=== PATIENT | female | born 1960 | race Caucasian/White ===

== ENCOUNTER 2016-09-25 09:53 | Emergency (ER) | payer OTHER ==
[~2016-09-25] VITALS: Ht 160 cm; Wt 62.0 kg
[2016-09-25 09:56] VITALS: Ht 160 cm; Wt 62.0 kg
[2016-09-25] MEDS ORDERED: IBUPROFEN 600 MG TAB PO ONE (10:30)
--- NOTE | 2016-09-25 10:50 | RADRPT ---
PROCEDURE: XR left Shoulder. CLINICAL INDICATION: Shoulder pain TECHNIQUE: 3 views of the left shoulder are available for review. COMPARISON: None available FINDINGS: There is no acute fracture or dislocation. The glenohumeral and acromioclavicular joints are intact . There is mild joint space narrowing with osseous spurring of the acromioclavicular joint. The sof t tissues around the left shoulder are unremarkable. There is no acute fracture of the visualized left ribs. RPTAT: ZZ IMPRESSION: 1. No acute bony abnormality. 2. Mild osteoarthrosis of the acromioclavicular joint. .Lia Christopher MD, MD Date Time Electronically viewed and signed by .Lia Christopher MD, on 09/25/2016 10:49 .T/
--- NOTE | 2016-09-25 10:51 | RADRPT ---
PROCEDURE: XR Chest. CLINICAL INDICATION: Left shoulder pain TECHNIQUE: Single frontal chest x-ray. COMPARISON: None. FINDINGS: The lungs are adequately expanded and clear. There is no focal consolidation, pleural effusion, or pneumothorax. The heart and mediastinal contours are unremarkable. There are no acute fractures. P sherry see shoulder radiographs of the same day for additional details of the left shoulder. RPTAT: ZZ IMPRESSION: No acute cardiopulmonary abnormality. .Lia Christopher MD, MD Date Time Electronically viewed and signed by .Lia Christopher MD, MD on 09/25/2016 10:51 .T/
[2016-09-25] MEDS ORDERED: IBUP-1542 PO (10:58)
[2016-09-25] MEDS ORDERED: ORPH100T PO (10:58)
--- NOTE | 2016-09-25 15:58 | ERD ---
ER Documentation Chief Complaint Date/Time DATE: 09/25/16 TIME: 15:52 Chief Complaint left shoulder pain x3 days, unk cause HPI This is a 55-year-old female presents to the ER with left shoulder pain for the last 3 days. Left shoulder pain extends into patient's back and is worse whenever she tries to move. Patient states she was cooking when she started feeling the pain. Pain is severe and intermittent. Patient tried over-the- counter pain pills however did not work. She denies any trauma to the area she denies any fevers or chills. Patient does not work and only does chores around the house. Patient denies any numbness or tingling of her extremity. She denies any elbow pain or wrist pain. ROS 12 point review of systems was done, all negative except per HPI. Medications Home Meds Active Scripts Orphenadrine Citrate (Norflex) 100 Mg Tablet.sa, 100 MG PO BID for 7 Days, TAB.SA Prov:CHEKO VIZCARRA C 09/25/16 Ibuprofen* (Motrin*) 600 Mg Tab, 600 MG PO Q6, #30 TAB Prov:ZACKERY,CHEKO C 09/25/16 Allergies Allergies: Coded Allergies: No Known Allergy (Unverified , 09/25/16) PMhx/Soc History of Surgery: Yes (Hysterectomy) Anesthesia Reaction: No Hx Neurological Disorder: No Hx Respiratory Disorders: No Hx Cardiac Disorders: No Hx Psychiatric Problems: No Hx Miscellaneous Medical Probl: Yes (Hypothyroidism) Hx Alcohol Use: No Hx Substance Use: No Hx Tobacco Use: No Smoking Status: Never smoker Physical Exam Vitals Vital Signs Date Time Temp Pulse Resp B/P Pulse Ox O2 Delivery O2 Flow Rate FiO2 09/25/16 09:56 98.3 65 18 135/78 98 Physical Exam GENERAL: The patient is well developed and appropriate for usual state of health , in no apparent distress. HEENT: Atraumatic. Neck: No cervical spine tenderness. Tender to palpation along trapezius muscles. No crepitus no step-offs CHEST: Clear to auscultation bilaterally. There are no rales, wheezes or rhonchi. HEART: Regular rate and rhythm. No murmurs, clicks, rubs or gallops. EXTREMITIES: The left shoulder is without obvious deformity when compared to the right shoulder. There is no surface trauma or ecchymosis or crepitus. No bony deformity or prominence of the humeral head. No erythema, warmth, swelling. Not tender to palpation over the clavicle, scapula or humeral head. Patient is tender to palpation to the AC joint and acromion. Not tender to palpation of the bicipital groove or soft tissues. Tender to palpation to the sternocleidomastoid, deltoid and trapezius. Patient is also tender to palpation to the latissimus dorsi. No rotator cuff tenderness. Patient does have some pain with shoulder extension and internal rotation normal abduction and abduction. NEURO: Alert and oriented. Cranial nerves II through XII are intact. Motor strength in all 4 extremities with 5/5 strength. Sensation grossly intact. Normal speech and gait. SKIN: There is no apparent rash or petechia. The skin is warm and dry. Results 24 hrs Current Medications Medications (Trade) Dose Ordered Sig/Aristeo Route PRN Reason Start Time Stop Time Status Last Admin Dose Admin Ibuprofen (Motrin) 600 mg ONCE ONCE PO 09/25/16 10:30 09/25/16 10:31 DC 09/25/16 10:23 Procedures/MDM Differential diagnosis includes but is not limited to; shoulder fracture shoulder sprain shoulder dislocation, AC separation, rotator cuff tear, bursitis , tendinitis, C-spine injury, peripheral nerve injury, occult intra-abdominal bleeding, AAA. This is a 55-year-old female presents to the ER with left shoulder pain that started 3 days ago. At this time etiology of the shoulder pain is unknown however patient did have some osteoarthritis of the AC joint. Patient is neurovascularly intact, afebrile and is able to move her shoulder. Patient denied any chest pain, however EKG was taken and read by my supervising physician 57bpm no st elevation or t wave inversion. Patient will be sent home with ibuprofen. She is to follow-up with her primary care doctor within 1-2 days return to ER sooner if symptoms worsen. My medical decision making shared with the patient she understands and agrees with plan. Departure Diagnosis: Primary Impression: Shoulder pain Condition: Stable Patient Instructions: Shoulder Pain (Uncertain Cause) Additional Instructions: Llame al doctor MAANA y renetta ting ABHINAV PARA DENTRO DE 1-2 MYERS.Dgale a la secretaria que nosotros le instruimos hacer esta abhinav.Avise o llame si swanson condicin se empeora antes de la abhinav. Regresa aqui si peor o no mejor. CHEKO VIZCARRA Sep 25, 2016 15:58
== END 2016-09-25 11:05 | disposition home or self-care (01) ==
LOC: FTE 09:53
DX: M25.512 Pain in left shoulder (principal); E03.9 Hypothyroidism, unspecified; R07.9 Chest pain, unspecified
CPT/HCPCS: 71010; 73030; 93005; Z7502; Z7610

== ENCOUNTER 2017-01-18 17:38 | Emergency (ER) | payer OTHER ==
[~2017-01-18] VITALS: Wt 62.0 kg
[~2017-01-18 17:38] MED LIST: IBUP-1542 PO; ORPH100T PO
[2017-01-18] MEDS ORDERED: BEN50 PO (19:42)
[2017-01-18] MEDS ORDERED: PRED20TA PO (19:42)
--- NOTE | 2017-01-18 19:53 | ERD ---
ER Documentation Chief Complaint Chief Complaint rash, itchiness, swollen lips (airway intact) HPI 56-year-old female presents to ED with pruritic skin lesions 3 days. Patient stated that the lesion comes and goes throughout the last 3 days. Today, she her lip got swollen. Denies shortness of breath. Denies wheezing. Denies exposure to new foods or new cleaning products. Denies fever or chills. ROS All systems reviewed and are negative except as per history of present illness. Medications Home Meds Active Scripts Prednisone* (Prednisone*) 20 Mg Tab, 60 MG PO DAILY for 3 Days, TAB Prov:LISS BONILLA. BELT MAKER 01/18/17 Diphenhydramine Hcl* (Benadryl*) 50 Mg Cap, 50 MG PO Q6H Y for ITCHING/RASH, # 30 CAP Prov:LISS BONILLA. BELT MAKER 01/18/17 Orphenadrine Citrate (Norflex) 100 Mg Tablet.sa, 100 MG PO BID for 7 Days, TAB.SA Prov:ZACKERY,CHEKO C 09/25/16 Ibuprofen* (Motrin*) 600 Mg Tab, 600 MG PO Q6, #30 TAB Prov:ZACKERY,CHEKO C 09/25/16 Allergies Allergies: Coded Allergies: No Known Allergy (Unverified , 01/18/17) PMhx/Soc History of Surgery: Yes (Hysterectomy) Anesthesia Reaction: No Hx Neurological Disorder: No Hx Respiratory Disorders: No Hx Cardiac Disorders: No Hx Psychiatric Problems: No Hx Miscellaneous Medical Probl: Yes (Hypothyroidism) Hx Alcohol Use: No Hx Substance Use: No Hx Tobacco Use: No Smoking Status: Never smoker Physical Exam Vitals Vital Signs Date Time Temp Pulse Resp B/P Pulse Ox O2 Delivery O2 Flow Rate FiO2 01/18/17 17:51 98.8 77 20 156/68 99 Physical Exam General: Well-developed, well-nourished, conscious and coherent, in no distress Skin: Warm and dry, good texture and turgor. I spread, multiple clusters of urticarial lesions noted on patient's torso and extremities. Head: Normocephalic without evidence of trauma Eyes: Sclera and conjunctivae normal; pupils equal, round, and reactive to light; extraocular movements are intact Mouth/throat: Mucous membranes are moist. Posterior pharynx clear without erythema or exudates Chest: Normal AP diameter. Good expansion without retractions. Nontender. Lungs are clear to auscultate bilaterally with good tidal volume Heart: Regular rate and rhythm. No murmur, rub, or gallops heard Extremities: Full range of motion. Good strength bilaterally. No clubbing, cyanosis, or edema. Peripheral pulses are intact. Sensation intact Neuro: Alert and oriented 4, GCS 15. Cranial nerves grossly intact. Motor and sensory exams nonfocal. Moves all extremities. Speech clear. Gait normal Results 24 hrs Current Medications Medications (Trade) Dose Ordered Sig/Aristeo Route PRN Reason Start Time Stop Time Status Last Admin Dose Admin Diphenhydramine HCl (Benadryl) 50 mg ONCE ONCE PO 01/18/17 20:00 01/18/17 20:01 Prednisone (Prednisone) 60 mg ONCE ONCE PO 01/18/17 20:00 01/18/17 20:01 Procedures/MDM Well-appearing 56-year-old female presented ED with urticaria 3 days. Suspect urticaria is allergic in nature, however patient does not know what causes that allergy. There is no sign of anaphylaxis. Patient is given Benadryl and prednisone in the ED. Patient's care and improved after the medication. Patient advised to keep a exposure diary at home in order to identify a cause allergy. Patient also advised to follow-up with PCP or bus and sys integration senior manager for allergy testing. Patient appears well, stable for discharge and outpatient management. Medical decision making shared with patient and family. Education provided to patient and family. Patient and family expressed understanding of the plan. Medications on discharge: Benadryl, prednisone. Follow-up: Primary care provider in 2-3 days or return to ED if worse. Disclaimer: Inadvertent spelling and grammatical errors are likely due to EHR/ dictation software use and do not reflect on the overall quality of patient care. Also, please note that the electronic time recorded on this note does not necessarily reflect the actual time of the patient encounter. Departure Diagnosis: Primary Impression: Urticaria Condition: Stable Patient Instructions: Hives Additional Instructions: Llame al doctor OSCARANA y renetta ting ABHINAV PARA DENTRO DE 2-3 MYERS.Dgale a la secretaria que nosotros le instruimos hacer esta abhinav.Avise o llame si swanson condicin se empeora antes de la abhinav. Regresa aqui si peor o no mejor. LISS BONILLA NP Jan 18, 2017 19:53
--- NOTE | 2017-01-18 19:53 | ERD ---
ER Documentation Chief Complaint Chief Complaint rash, itchiness, swollen lips (airway intact) HPI 56-year-old female presents to ED with pruritic skin lesions 3 days. Patient stated that the lesion comes and goes throughout the last 3 days. Today, she her lip got swollen. Denies shortness of breath. Denies wheezing. Denies exposure to new foods or new cleaning products. Denies fever or chills. ROS All systems reviewed and are negative except as per history of present illness. Medications Home Meds Active Scripts Prednisone* (Prednisone*) 20 Mg Tab, 60 MG PO DAILY for 3 Days, TAB Prov:LISS BONILLA. FURRIER APPRENTICE 01/18/17 Diphenhydramine Hcl* (Benadryl*) 50 Mg Cap, 50 MG PO Q6H Y for ITCHING/RASH, # 30 CAP Prov:LISS OBNILLA. FURRIER APPRENTICE 01/18/17 Orphenadrine Citrate (Norflex) 100 Mg Tablet.sa, 100 MG PO BID for 7 Days, TAB.SA Prov:ZACKERY,CHEKO C 09/25/16 Ibuprofen* (Motrin*) 600 Mg Tab, 600 MG PO Q6, #30 TAB Prov:ZACKERY,CHEKO C 09/25/16 Allergies Allergies: Coded Allergies: No Known Allergy (Unverified , 01/18/17) PMhx/Soc History of Surgery: Yes (Hysterectomy) Anesthesia Reaction: No Hx Neurological Disorder: No Hx Respiratory Disorders: No Hx Cardiac Disorders: No Hx Psychiatric Problems: No Hx Miscellaneous Medical Probl: Yes (Hypothyroidism) Hx Alcohol Use: No Hx Substance Use: No Hx Tobacco Use: No Smoking Status: Never smoker Physical Exam Vitals Vital Signs Date Time Temp Pulse Resp B/P Pulse Ox O2 Delivery O2 Flow Rate FiO2 01/18/17 17:51 98.8 77 20 156/68 99 Physical Exam General: Well-developed, well-nourished, conscious and coherent, in no distress Skin: Warm and dry, good texture and turgor. I spread, multiple clusters of urticarial lesions noted on patient's torso and extremities. Head: Normocephalic without evidence of trauma Eyes: Sclera and conjunctivae normal; pupils equal, round, and reactive to light; extraocular movements are intact Mouth/throat: Mucous membranes are moist. Posterior pharynx clear without erythema or exudates Chest: Normal AP diameter. Good expansion without retractions. Nontender. Lungs are clear to auscultate bilaterally with good tidal volume Heart: Regular rate and rhythm. No murmur, rub, or gallops heard Extremities: Full range of motion. Good strength bilaterally. No clubbing, cyanosis, or edema. Peripheral pulses are intact. Sensation intact Neuro: Alert and oriented 4, GCS 15. Cranial nerves grossly intact. Motor and sensory exams nonfocal. Moves all extremities. Speech clear. Gait normal Results 24 hrs Current Medications Medications (Trade) Dose Ordered Sig/Aristeo Route PRN Reason Start Time Stop Time Status Last Admin Dose Admin Diphenhydramine HCl (Benadryl) 50 mg ONCE ONCE PO 01/18/17 20:00 01/18/17 20:01 Prednisone (Prednisone) 60 mg ONCE ONCE PO 01/18/17 20:00 01/18/17 20:01 Procedures/MDM Well-appearing 56-year-old female presented ED with urticaria 3 days. Suspect urticaria is allergic in nature, however patient does not know what causes that allergy. There is no sign of anaphylaxis. Patient is given Benadryl and prednisone in the ED. Patient's care and improved after the medication. Patient advised to keep a exposure diary at home in order to identify a cause allergy. Patient also advised to follow-up with PCP or geriatric physical therapist for allergy testing. Patient appears well, stable for discharge and outpatient management. Medical decision making shared with patient and family. Education provided to patient and family. Patient and family expressed understanding of the plan. Medications on discharge: Benadryl, prednisone. Follow-up: Primary care provider in 2-3 days or return to ED if worse. Disclaimer: Inadvertent spelling and grammatical errors are likely due to EHR/ dictation software use and do not reflect on the overall quality of patient care. Also, please note that the electronic time recorded on this note does not necessarily reflect the actual time of the patient encounter. Departure Diagnosis: Primary Impression: Urticaria Condition: Stable Patient Instructions: Hives Additional Instructions: Llame al doctor OSCARANA y renetta ting ABHINAV PARA DENTRO DE 2-3 MYERS.Dgale a la secretaria que nosotros le instruimos hacer esta abhinav.Avise o llame si swanson condicin se empeora antes de la abhinav. Regresa aqui si peor o no mejor. LISS BONILLA NP Jan 18, 2017 19:53
[2017-01-18] MEDS ORDERED: predniSONE 20 MG TAB PO ONE (20:00)
[2017-01-18] MEDS ORDERED: DIPHENHYDRAMINE 50 MG CAP PO ONE (20:00)
== END 2017-01-18 20:38 | disposition home or self-care (01) ==
LOC: FTE 17:38
DX: L50.9 Urticaria, unspecified (principal); E03.9 Hypothyroidism, unspecified
CPT/HCPCS: J7512; Z7502; Z7610; 99283